=== PATIENT | male | born 1985 | race Caucasian/White ===

== ENCOUNTER → 2016-11-27 | Outpatient (CLI) | payer OTHER | LOC: KOH-I 16:31 | DX: M54.5 Low back pain (principal); W19.XXXA Unspecified fall, initial encounter | CPT/HCPCS: 72110 ==

== ENCOUNTER → 2021-03-28 | Outpatient (CLI) | payer OTHER ==
[~2021-03-28] MED LIST: IBUPROFEN600 MG PO; PERCOCET 10-321 EACH PO; PERCOCET 5/325 T1 EA PO
[2021-03-29 08:13] LABS: RHEUMATOID ARTHRITIS FACTOR <10.0 IU/mL (0.0-13.9); VITAMIN D, 25-HYDROXY 35.8 ng/mL (30.0-100.0)
== END ==
LOC: LAB 10:42
PROVIDERS: Nurse Practitioner Family
DX: M79.641 Pain in right hand (principal); M79.642 Pain in left hand; M79.10 Myalgia, unspecified site; M25.50 Pain in unspecified joint; R53.83 Other fatigue
CPT/HCPCS: 36415; 73130; 82550; 83520; 84439; 84443; 85652; 86140; 86200; 86431